=== PATIENT | male | born 1975 | race Caucasian/White ===

== ENCOUNTER 2021-06-08 21:33 | Emergency (ER) | payer OTHER, SELFPAY ==
[2021-06-08 21:50] VITALS: BP 160/82; PULSE 87; RESP 18; TEMP 37.5; O2SAT 97; BMI 21.3
--- NOTE | 2021-06-08 21:57 | XRR_ITS ---
PROCEDURE INFORMATION: Exam: XR Chest Exam date and time: 06/08/2021 9:57 PM Age: 45 years old Clinical indication: Sternal or substernal pain; Additional info: Chest pain TECHNIQUE: Imaging protocol: XR of the chest. Views: 1 view. Total images: 1 COMPARISON: No relevant prior studies available. FINDINGS: Lungs: No visible active interstitial or alveolar airspace disease. Pleural spaces: Unremarkable. No pleural effusion. No pneumothorax. Heart/Mediastinum: Cardiac structures and configuration within normal limits. Bones/joints: Unremarkable. XR/XR chest 1V portable [id number] IMPRESSION: Nonacute. Radiation Dose CTDIVOL = (mGy): DLP = (mGy-cm)
--- NOTE | 2021-06-08 22:32 | W.ED.CHESTPA ---
HPI - Chest Pain General: Chief Complaint: Chest Pain Stated Complaint: Chest Pain Time Seen by Provider: 06/08/21 22:32 History of Present Illness: HPI narrative: Mr. Molina is a 45-year-old gentleman with history of hypertension and remote history of tobaccoism who presents emergency department due to chest pain. He describes a few day history of mostly body aches and chills. He has associated generalized malaise but no other specific symptoms. Today he developed right anterior chest discomfort which is sharp in nature and appears to be positional and pleuritic. No associated shortness of breath or cough. He has taken [id number] medications with transient relief and body aches. No other specific exacerbating relieving factors identified. Intensity of symptoms is moderate. The course has been variable he denies similar episodes in the past. Review of Systems General: Reports: 10 or more systems reviewed and unremarkable except in HPI and below Physical Exam Narrative: EXAM NARRATIVE: GENERAL/CONSTITUTIONAL -mildly ill-appearing. No acute distress. Eyes - PERRL, no conjunctival injection ENMT - Atraumatic external nose and ears. Moist mucous membranes NECK - supple. trachea midline CARDIOVASCULAR - regular rate and rhythm. Peripheral pulses 2+ and equal RESPIRATORY -clear to auscultation bilaterally. No retractions or accessory muscle use. ABDOMEN/GI - Nontender/Nondistended. MSK - Extremities without obvious deformity or tenderness to palpation SKIN - Warm, Dry NEURO - alert and appropriately oriented. strength and sensation intact. Moves all extremities equally. Course ED course: - Patient was seen and evaluated by me at bedside - Patient placed on cardiac monitors, IV access obtained - Initial evaluation notable for mildly ill appearance, chest pain not reproducible on exam - Symptom treatment ordered - Labs notable for minimal leukocytosis, no significant metabolic abnormalities. CRP elevated, procalcitonin negative. Viral studies negative. Delta troponin negative. - Imaging notable for no acute abnormality - EKG obtained and reviewed, no STEMI however not available for electronic review for further documentation. - Patient low risk by heart score. - Upon serial reexamination after treatment the patient was mildly improved - Based on patient history, evaluation, labs, and imaging as interpreted the most likely cause of the patient's condition is viral syndrome - The results of ED evaluation were discussed with the patient including prescriptions and/or symptomatic cares (if applicable) including appropriate and responsible use, followup plan, and return precautions. The patient verbalized understanding and felt safe for discharge. - Patient discharged in satisfactory condition. Vital Signs: Vital signs: Vital Signs Temperature 99.5 F 06/08/21 21:50 Pulse Rate 67 06/09/21 01:58 Respiratory Rate 16 06/09/21 01:58 Blood Pressure 117/85 06/09/21 01:58 Pulse Oximetry 97 06/09/21 01:58 MDM - Chest Pain Medical Records: Attestation: I reviewed the patient's medical records. Lab Data: Attestation: I reviewed the patient's lab results. Labs: Lab Results 06/08/21 06/08/21 06/08/21 22:10 22:10 22:10 WBC 11.2 10^3/uL H 10 ^3/uL (4.0-10.0) RBC 4.95 10^6/uL 10^6 /uL (4.1-5.3) Hgb 14.9 g/dL g/dL (11.7-16.6) Hct 44.1 % % (42.0-52.0) MCV 89.1 fl fl (80-94) MCH 30.1 pg pg (28.0-34.0) MCHC 33.8 g/dL g/dL (30.0-36.0) RDW 12.2 % % (12.1-15.1) Plt Count 228 10^3/cmm 10^3 /cmm (130-400) MPV 10.7 fL H fL (7.4-10.4) Neut % (Auto) 72.3 % % Lymph % (Auto) 14.7 % % [place] % (Auto) 12.0 % % Eos % (Auto) 0.4 % % Baso % (Auto) 0.4 % % Neut # (Auto) 8.06 10^3/uL H 10 ^3/uL (1.8-7.7) Lymph # (Auto) 1.6 10^3/uL 10^3/ uL (0.8-4.8) [place] # (Auto) 1.3 10^3/uL H 10^ 3/uL (0.2-0.9) Eos # (Auto) 0.1 10^3/uL 10^3/ uL (0.0-0.8) Baso # (Auto) 0.0 10^3/uL 10^3/ uL (0.0-0.1) Nucleated RBC % (a uto) 0 % % Nucleated RBCs # 0.0 /100WBC /100W BC Sodium 137 mmol/L mmol/L (136-145) Potassium 4.0 mmol/L mmol/L (3.5-5.1) Chloride 102 mmol/L mmol/L (98-107) Carbon Dioxide 25 mmol/L mmol/L (22-29) Anion Gap 14.0 (5-19) BUN 14 mg/dL mg/dL (6-20) Creatinine 1.0 mg/dL mg/dL (0.7-1.2) GFR Calculation 81.2 mL/min L mL/ min (90-130) Glucose 98 mg/dL mg/dL (65-115) Calculated Osmolal ity 284 mOsm/kg L mOs m/kg (285-295) Calcium 9.1 mg/dL mg/dL (8.5-10.5) Total Bilirubin 0.5 mg/dL mg/dL (0.15-1.2) AST 20 U/L U/L (0-40) ALT 35 U/L U/L (0-41) Alkaline Phosphata se 69 IU/L IU/L (40-130) Troponin T Baselin e 6 ng/L ng/L (0-15) Troponin T 120 Min [place] Delta Troponin T C-Reactive Protein 48.6 mg/L H mg/L (0.0-4.9) Total Protein 6.8 g/dL g/dL (6.6-8.7) Albumin 4.2 g/dL g/dL (3.5-5.2) Globulin 2.6 g/dL g/dL (1.3-4.6) Procalcitonin 0.07 ng/mL ng/mL (0-0.5) Influenza Type A A g Influenza Type B A g SARS-CoV-2 Ag (Rap id) 06/08/21 06/08/21 06/08/21 22:10 22:50 23:30 WBC RBC Hgb Hct MCV MCH MCHC RDW Plt Count MPV Neut % (Auto) Lymph % (Auto) [place] % (Auto) Eos % (Auto) Baso % (Auto) Neut # (Auto) Lymph # (Auto) [place] # (Auto) Eos # (Auto) Baso # (Auto) Nucleated RBC % (a uto) Nucleated RBCs # Sodium Potassium Chloride Carbon Dioxide Anion Gap BUN Creatinine GFR Calculation Glucose Calculated Osmolal ity Calcium Total Bilirubin AST ALT Alkaline Phosphata se Troponin T Baselin e Troponin T 120 Min [place] Delta Troponin T C-Reactive Protein Cancelled Total Protein Albumin Globulin Procalcitonin Cancelled Influenza Type A A g Negative (Negative) Influenza Type B A g Negative (Negative) SARS-CoV-2 Ag (Rap id) Negative (Negative) 06/09/21 00:35 WBC RBC Hgb Hct MCV MCH MCHC RDW Plt Count MPV Neut % (Auto) Lymph % (Auto) [place] % (Auto) Eos % (Auto) Baso % (Auto) Neut # (Auto) Lymph # (Auto) [place] # (Auto) Eos # (Auto) Baso # (Auto) Nucleated RBC % (a uto) Nucleated RBCs # Sodium Potassium Chloride Carbon Dioxide Anion Gap BUN Creatinine GFR Calculation Glucose Calculated Osmolal ity Calcium Total Bilirubin AST ALT Alkaline Phosphata se Troponin T Baselin e Troponin T 120 Min [place] 6.00 ng/L ng/L (0-15) Delta Troponin T 0 ABS# ABS# (0-10) C-Reactive Protein Total Protein Albumin Globulin Procalcitonin Influenza Type A A g Influenza Type B A g SARS-CoV-2 Ag (Rap id) Discharge Plan Discharge Patient Disposition: Home Clinical Impression: Atypical chest pain, Acute viral syndrome Condition: Stable Discharge Orders: Discharge ED (Routine); Ordered 06/09/21 Ordered By: Jonatan Hewitt Discharge Diet: Usual diet Discharge Activity: Resume usual activity Patient Instructions: Chest Pain (ED), Viral Syndrome (ED) Activity Restrictions/Additional Instructions: Thank you for visiting the emergency department. You were seen and evaluated for viral syndrome and chest pain. The exact cause of your symptoms is unclear however does not require hospitalization at this time. Please follow-up with your primary care provider. Please return to the emergency department for anything that you are concerned about and feel needs emergency department evaluation. Coding Level of Care Code ED Public Safety Officer for Karen Knott
[2021-06-08 22:36] LABS: Basophils % 0.4 %; Eosinophils # 0.1 10^3/uL (0.0-0.8); Eosinophils % 0.4 %; Hematocrit 44.1 % (42.0-52.0); Hemoglobin 14.9 g/dL (11.7-16.6); Lymphocytes # 1.6 10^3/uL (0.8-4.8); Lymphocytes % 14.7 %; Mean Corpuscular HGB Conc 33.8 g/dL (30.0-36.0); Mean Corpuscular Hemoglobin 30.1 pg (28.0-34.0); Mean Corpuscular Volume 89.1 fl (80-94); Mean Platelet Volume 10.7 fL (7.4-10.4); Monocytes # 1.3 10^3/uL (0.2-0.9); Neutrophils # 8.06 10^3/uL (1.8-7.7); Neutrophils % 72.3 %; Nucleated Red Blood Cells % 0 %; Platelet Count 228 10^3/cmm (130-400); Red Blood Count 4.95 10^6/uL (4.1-5.3); Red Cell Distribution Width 12.2 % (12.1-15.1); White Blood Count 11.2 10^3/uL (4.0-10.0)
[2021-06-08 22:46] VITALS: BP 133/92; PULSE 81; RESP 16; O2SAT 96
[2021-06-08 22:55] LABS: Troponin(5th) Baseline 6 ng/L (0-15)
[2021-06-08 22:56] LABS: Alanine Aminotransferase 35 U/L (0-41); Albumin Level 4.2 g/dL (3.5-5.2); Alkaline Phosphatase 69 IU/L (40-130); Aspartate Amino Transferase 20 U/L (0-40); Blood Urea Nitrogen 14 mg/dL (6-20); C Reactive Protein 48.6 mg/L (0.0-4.9); Calcium 9.1 mg/dL (8.5-10.5); Carbon Dioxide 25 mmol/L (22-29); Chloride 102 mmol/L (98-107); Creatinine Clr Calc Pharmacy 82.9728; Globulin 2.6 g/dL (1.3-4.6); Glomerular Filtration Rate 81.2 mL/min (90-130); Glucose 98 mg/dL (65-115); Osmolality Calculated 284 mOsm/kg (285-295); Sodium 137 mmol/L (136-145); Total Bilirubin 0.5 mg/dL (0.15-1.2); Total Protein 6.8 g/dL (6.6-8.7)
[2021-06-08 23:02] LABS: Procalcitonin 0.07 ng/mL (0-0.5)
[2021-06-08 23:19] LABS: SARS Covid-2 Antigen Negative (Negative)
[2021-06-09] LABS: Influenza A by IFA Negative (Negative); Influenza B by IFA Negative (Negative)
--- NOTE | 2021-06-09 00:18 | PC.NURSE ---
Ambulated with steady gait to the bathroom. Reports body aches are returning.
[2021-06-09] MEDS: sodium chloride 0.9% 1,000 ML 999 ML IV (00:35)
[2021-06-09] MEDS: ketorolac 30 mg/mL INJ 15 MG IVP (00:35)
[2021-06-09 00:39] VITALS: BP 116/80; PULSE 65; RESP 20; O2SAT 97
[2021-06-09 01:14] LABS: Troponin 5 2HR Delta 0 ABS# (0-10)
[2021-06-09 01:58] VITALS: BP 117/85; PULSE 67; RESP 16; O2SAT 97
--- NOTE | 2021-06-12 14:26 | DCPLANNER ---
program manager slp had message to schedule a follow up appointment for patient with heart care. program manager slp called the heart care clinic, spoke with Arlet, gave clinic patients information. A follow up appointment was scheduled for patient for Saturday, July 03, 2021 at 12:[address] Shaver. program manager slp called patient and gave him the appointment information.
--- NOTE | 2021-07-06 10:30 | DCPLANNER ---
Patient had a follow up appointment scheduled for 07.03.[address] Shaver at [facility] - patient did not attend appointment.
== END 2021-06-09 02:00 | disposition home or self-care (01) ==
PROVIDERS: Emergency Medicine; Emergency Provider Emergency Medicine
DX: R07.89 Other chest pain (principal); B34.9 Viral infection, unspecified; Z87.891 Personal history of nicotine dependence
CPT/HCPCS: 71045; 80053; 84145; 84484; 85025; 86140; 87426; 87804; 96361; 96374; 99284; J1885; J7030